=== PATIENT | female | born 1990 | race Caucasian/White ===

== ENCOUNTER → 2017-04-20 | Outpatient (CLI) | payer OTHER | END | disposition home or self-care (01) | LOC: LAB 08:13 | DX: O09.93 Supervision of high risk pregnancy, unspecified, third trimester (principal) ==

== ENCOUNTER 2017-06-02 14:00 | Inpatient (IN) | payer OTHER ==
[~2017-06-02] VITALS: Ht 167.6 cm; Wt 3.2 kg
[2017-06-10] MEDS ORDERED: PRENATAL TABLE1 EAC1 PO (06:59)
[2017-06-10] MEDS ORDERED: FOLIC ACID1 MG PO (07:00)
== END 2017-06-12 15:25 | disposition home or self-care (01) | DRG 766 ==
LOC: O/R 06-10 06:15 → SURG-SUITE 06-10 06:15 → LDR 06-10 07:00 → SURG-SUITE 06-10 11:09 → LDR 06-10 14:00 → SURG-SUITE 06-12 15:25 → LDR 06-16 14:00
PROVIDERS: Specialist
PROC: 4A1HXCZ Monitoring of Products of Conception, Cardiac Rate, External Approach (ICD-10-PCS; 2017-06-10)
PROC: 4A033R1 Measurement of Arterial Saturation, Peripheral, Percutaneous Approach (ICD-10-PCS; 2017-06-10)
PROC: 10D00Z1 Extraction of Products of Conception, Low, Open Approach (ICD-10-PCS; principal; 2017-06-10 07:00)
DX: O34.211 Maternal care for low transverse scar from previous cesarean delivery (principal); Z3A.39 39 weeks gestation of pregnancy; Z37.0 Single live birth

== ENCOUNTER 2019-11-28 12:15 | Inpatient (IN) | payer OTHER ==
[~2019-11-28] VITALS: Ht 167.6 cm; Wt 2.7 kg
[~2019-11-28 12:15] MED LIST: FOLIC ACID1 MG PO; PRENATAL TABLE1 EAC1 PO
[2019-12-05] MEDS ORDERED: IRON325 MG PO (07:09)
== END 2019-12-08 11:14 | disposition home or self-care (01) | DRG 788 ==
LOC: EDSTATUS 12:15 → O/R 12-05 06:39 → SURG-SUITE 12-05 06:39 → OB/GYN 12-05 08:15 → SURG-SUITE 12-05 15:01
PROVIDERS: ADMIT Specialist; ATTEND Specialist
PROC: 4A1HXFZ Monitoring of Products of Conception, Cardiac Rhythm, External Approach (ICD-10-PCS; 2019-12-05)
PROC: 3E033VJ Introduction of Other Hormone into Peripheral Vein, Percutaneous Approach (ICD-10-PCS; 2019-12-05)
PROC: 10D00Z1 Extraction of Products of Conception, Low, Open Approach (ICD-10-PCS; principal; 2019-12-05 08:15)
DX: O82 Encounter for cesarean delivery without indication (principal); O34.211 Maternal care for low transverse scar from previous cesarean delivery; Z3A.39 39 weeks gestation of pregnancy; Z37.0 Single live birth; Z20.828 Contact with and (suspected) exposure to other viral communicable diseases; O99.824 Streptococcus B carrier state complicating childbirth